=== PATIENT | male | born 1985 | race African-American/Black ===

== ENCOUNTER 2018-01-05 10:18 | Emergency (ER) | payer OTHER ==
[~2018-01-05] VITALS: Ht 188 cm; Wt 96.2 kg
[~2018-01-05 10:18] MED LIST: IBUPROFEN 800800 MG PO
[2018-01-05 11:30] LABS: ABSOLUTE NEUTROPHILS 11.3 thou/uL (1.4-8.2); BASOPHILS 0.3 % (0.0-2.0); EOSINOPHILS 0.2 % (0.0-3.0); HEMATOCRIT 39.7 % (42.0-52.0); HEMOGLOBIN 13.2 gm/dL (14.0-18.0); MCH 29.7 pg (26.0-34.0); MCHC 33.2 g/dL (28.0-37.0); MCV 89.4 fL (80.0-100.0); MONOCYTES 8.5 % (1.0-8.0); PLATELET COUNT 233 thou/uL (150-400); RBC 4.44 mil/uL (4.50-6.00); RDW 14.2 % (10.5-14.5); WBC 13.8 thou/uL (4.0-11.0)
[2018-01-05 11:38] LABS: CALCIUM 9.4 mg/dL (8.5-10.1); CREATININE 1.1 mg/dL (0.7-1.3); POTASSIUM 3.8 mmol/L (3.5-5.1)
[2018-01-05 11:45] LABS: ALBUMIN 3.8 g/dL (3.4-5.0); TOTAL BILIRUBIN 1.2 mg/dL (<0.1-1.0); TOTAL PROTEIN 7.3 g/dL (6.4-8.2)
[2018-01-05] MEDS ORDERED: NORCO 5-325 TA1 EACH PO ×2 (13:33→14:00)
[2018-01-05] MEDS ORDERED: SENNA-DOCUSATE1 EAC1 PO ×2 (13:33→14:00)
[2018-01-05] MEDS ORDERED: AUGMENTIN 875-1 EACH PO ×2 (13:33→14:00)
[2018-01-05] MEDS ORDERED: ZOFRAN ODT4 MG PO (14:22)
[2018-01-05 14:43] VITALS: BP 150/84
== END 2018-01-05 14:45 | disposition home or self-care (01) ==
LOC: ER 10:18
PROVIDERS: Emergency Medicine
DX: L02.215 Cutaneous abscess of perineum (principal); F17.210 Nicotine dependence, cigarettes, uncomplicated

== ENCOUNTER 2018-05-06 20:54 | Emergency (ER) | payer OTHER ==
[~2018-05-06] VITALS: Ht 185.4 cm; Wt 81.7 kg
[~2018-05-06 20:54] MED LIST changes: +AUGMENTIN 875-1 EACH PO; +NORCO 5-325 TA1 EACH PO; +SENNA-DOCUSATE1 EAC1 PO; +ZOFRAN ODT4 MG PO
[2018-05-06 21:05] VITALS: BP 124/88
[2018-05-06] MEDS ORDERED: NORCO 5-325 TA1 EACH PO (21:40)
== END 2018-05-06 21:56 | disposition home or self-care (01) ==
LOC: ER 20:54
DX: S16.1XXA Strain of muscle, fascia and tendon at neck level, initial encounter (principal); S39.012A Strain of muscle, fascia and tendon of lower back, initial encounter; F17.210 Nicotine dependence, cigarettes, uncomplicated; V89.2XXA Person injured in unspecified motor-vehicle accident, traffic, initial encounter; Y92.89 Other specified places as the place of occurrence of the external cause; Y93.89 Activity, other specified; Y99.8 Other external cause status

== ENCOUNTER 2018-05-18 23:43 | Emergency (ER) | payer OTHER ==
[~2018-05-18] VITALS: Ht 188 cm; Wt 59.0 kg
[2018-05-18] MEDS ORDERED: NOHOMEMEDICATIONS (23:58)
[2018-05-19 02:13] VITALS: BP 120/72
== END 2018-05-19 02:14 | disposition home or self-care (01) ==
LOC: ER 23:43
DX: S61.411A Laceration without foreign body of right hand, initial encounter (principal); F17.210 Nicotine dependence, cigarettes, uncomplicated; Y08.89XA Assault by other specified means, initial encounter; Y93.89 Activity, other specified; Y92.89 Other specified places as the place of occurrence of the external cause; Y99.8 Other external cause status

== ENCOUNTER 2018-08-04 19:11 | Emergency (ER) | payer OTHER ==
[~2018-08-04] VITALS: Ht 185.4 cm; Wt 83.9 kg
[~2018-08-04 19:11] MED LIST changes: +NOHOMEMEDICATIONS
[2018-08-04] MEDS ORDERED: CEPACOL SORE T1 EAC7 PO (19:52)
[2018-08-04] MEDS ORDERED: CLARITIN10 MG PO (19:52)
[2018-08-04 20:09] VITALS: BP 131/79
== END 2018-08-04 20:10 | disposition home or self-care (01) ==
LOC: ER 19:11
DX: J02.8 Acute pharyngitis due to other specified organisms (principal); J06.9 Acute upper respiratory infection, unspecified

== ENCOUNTER 2021-01-29 17:47 | Emergency (ER) | payer OTHER ==
[~2021-01-29] VITALS: Ht 188 cm; Wt 113.4 kg
[~2021-01-29 17:47] MED LIST changes: +CEPACOL SORE T1 EAC7 PO; +CLARITIN10 MG PO
[2021-01-29] MEDS ORDERED: MOBIC7.5 MG PO (19:01)
[2021-01-29 19:26] VITALS: BP 128/73
== END 2021-01-29 19:30 | disposition home or self-care (01) ==
LOC: ER 17:47
DX: M77.9 Enthesopathy, unspecified (principal); M25.531 Pain in right wrist; F17.210 Nicotine dependence, cigarettes, uncomplicated; Z79.899 Other long term (current) drug therapy